=== PATIENT | male | born 1995 | race Asian ===

== ENCOUNTER 2017-03-16 07:12 | Emergency (ER) | payer OTHER ==
[2017-03-16] MEDS ORDERED: Pantoprazole IV* 40 MG IV ONE (07:45)
[2017-03-16] MEDS ORDERED: Ondansetron INJ* 2 MG/ML VIAL IV ONE (07:45)
[2017-03-16 08:49] LABS: Hematocrit 43 % (42-52); Hemoglobin 14.3 g/dl (14.0-18.0); Mean Corpuscular HGB Conc 34 g/dl (31-36); Mean Corpuscular Hemoglobin 30 pg (27-31); Mean Corpuscular Volume 91 fL (80-94); Mean Platelet Volume 9 um3 (7.4-10.4); Red Blood Count 4.69 10^6/ul (4.0-5.4); Red Cell Distribution Width 13 % (10.5-15); White Blood Count 15.5 10^3/ul (3.5-10.8)
[2017-03-16] MEDS: NS 0.9% 1000 ML* 2,000 ML IV ONE (08:50)
[2017-03-16] MEDS: Morphine INJ* 4 MG/ML 1 ML SYRINGE IV ONE ×2 (08:51→08:56)
[2017-03-16 09:04] LABS: ALT 15 U/L (7-52); Albumin 4.3 g/dL (3.2-5.2); Alkaline Phosphatase 82 U/L (34-104); Amylase 37 U/L (29-103); BUN/Creatinine Ratio 17.1 (8-20); Blood Urea Nitrogen 14 mg/dL (6-24); C Reactive Protein 2.48 mg/L (< 5.00); CO2 Carbon Dioxide 26 mmol/L (22-32); Calcium 9.5 mg/dL (8.6-10.3); Chloride 103 mmol/L (101-111); EGFR Non-African American 119.8 (>60); Globulin 3.3 g/dL (2-4); Glucose 105 mg/dL (70-100); Lipase < 10 U/L (11.0-82.0); Sodium 137 mmol/L (133-145); Total Protein 7.6 g/dL (6.4-8.9)
[2017-03-16 09:05] LABS: AST 16 U/L (13-39); Anion Gap 8 mmol/L (2-11); Potassium 4.1 mmol/L (3.5-5.0)
[2017-03-16] MEDS ORDERED: Iohexol 300* (CONTRAST) 10 ML SDV IV ONE (09:29)
--- NOTE | 2017-03-16 10:52 | RAD ---
CLINICAL HISTORY: Right lower quadrant pain since the previous evening COMPARISON: None TECHNIQUE: Contrast enhanced CT examination of the abdomen and pelvis from the lung bases through the initial tuberosities. The patient received 87 mL Omnipaque 300 intravenously prior to imaging.The patient received oral contrast as well prior to imaging. FINDINGS: VISUALIZED LUNG BASES: The visualized lung bases are grossly clear. There is no pleural effusion. ABDOMEN AND PELVIS: The liver, spleen, pancreas and adrenal glands are grossly normal in appearance. The gallbladder is decompressed limiting meaningful evaluation. The kidneys are normal in appearance without focal mass, calcification or signs of hydronephrosis. The oral contrast has progressed as far as the transverse colon. The small and large bowel are not distended. The patient's normal appendix is identified in the right lower quadrant measuring 5 mm in diameter with gas and stool in the lumen (coronal image 30). There is no gross retroperitoneal or mesenteric lymphadenopathy. Mesenteric lymph nodes measure up to 7 mm in short axis diameter, best depicted on the coronal plane images (image 35) The pelvic viscera is normal in appearance. The abdominal aorta and iliac arteries are normal in course and diameter. There are no sinister bone lesions. IMPRESSION: Normal CT examination.
[2017-03-16 11:47] VITALS: BP 107/63
--- NOTE | 2017-03-16 12:49 | ED ---
I, Oh,Soohdelmyun, scribed for Alexis Sanchez MD on 03/16/17 at 0804 . Abdominal Pain/Male - HPI Summary HPI Summary: This 21 y/o male presents to ED via ambulance for acute periumbilical pain since 0200 AM this morning. Pt last ate around 0100 AM. Pain is constant but waxing and waning, having subsided during ambulance ride but come back while in ED. No radiation of pain. Negative n/v/d or fever. Pt denies any PMHx, but reports being "some stuffs" [place] alternative medicines for his stomach. Pt is a student. Nonsmoker and nondrinker. - History of Current Complaint Chief Complaint: EDAbdPain Stated Complaint: ABD PAIN Time Seen by Provider: 03/16/17 07:30 Hx Obtained From: Patient Onset/Duration: Sudden Onset, Still Present Timing: Constant Pain Intensity: 9 Pain Scale Used: 0-10 Numeric Location: Umbilical Radiates: No Character: Dull Aggravating Factor(s): Nothing Alleviating Factor(s): Nothing Associated Signs And Symptoms: Negative: Fever, Urinary Symptoms, Nausea, Vomiting, Diarrhea - Allergies/Home Medications Allergies/Adverse Reactions: Allergies Allergy/AdvReac Type Severity Reaction Status Date / Time No Known Allergies Allergy Verified 03/16/17 07:16 PMH/Surg Hx/FS Hx/Imm Hx Previously Healthy: Yes - Denies any PMHx Infectious Disease History: No Infectious Disease History: Denies: Traveled Outside the [place] in Last 30 Days - Family History Known Family History: Negative: Hypertension - Social History Occupation: Student Alcohol Use: None Hx Substance Use: No Substance Use Type: Reports: None Hx Tobacco Use: No Smoking Status (MU): Never Smoked Tobacco Review of Systems Negative: Fever Positive: Abdominal Pain. Negative: Vomiting, Diarrhea, Nausea, Other - flatulance Negative: dysuria All Other Systems Reviewed And Are Negative: Yes Physical Exam - Summary Physical Exam Summary: The patient is well-nourished in no acute distress. Pt appears to be in moderate pain. The skin is warm and dry and skin color reflects adequate perfusion. HEENT: The head is normocephalic and atraumatic. The pupils are equal and reactive. The conjunctivae are clear and without drainage. Nares are patent and without drainage. Mouth reveals moist mucous membranes and the throat is without erythema and exudate. Neck is supple with full range of motion and non-tender. There are no carotid bruits. There is no neck vein distension. Respiratory: Chest is non-tender. Lungs are clear to auscultation and breath sounds are symmetrical and equal. Cardiovascular: Hear is regular rate and rhythm. There is no murmur or rub auscultated. There is no peripheral edema and pulses are symmetrical and equal. Abdomen: Tender above umbilicum. No RUQ/RLQ tenderness. Good bowel sound. Negative CVA tenderness. Musculoskeletal: There is no back pain noted. Extremities are non-tender with full range of motion. There is good capillary refill. There is no peripheral edema or calf tenderness elicited. Neurological: Patient is alert and oriented to person, place and time. The patient has symmetrical motor strength in all four extremities. Cranial nerves are grossly intact. Deep tendon reflexes are symmetrical and equal in all four extremities. Psychiatric: The patient has an appropriate affect and does not exhibit any anxiety or depression. Triage Information Reviewed: Yes Vital Signs On Initial Exam: Initial Vitals Temp Pulse Resp BP Pulse Ox 98.1 F 69 16 112/71 100 03/16/17 07:17 03/16/17 07:17 03/16/17 07:17 03/16/17 07:17 03/16/17 07:17 Vital Signs Reviewed: Yes Diagnostics - Vital Signs Vital Signs Temp Pulse Resp BP Pulse Ox 03/16/17 07:17 98.1 F 69 16 112/71 100 - Laboratory Lab Results: Lab Results 03/16/17 03/16/17 03/16/17 Range/Units 08:40 08:40 08:40 WBC 15.5 H (3.5-10.8) 10^3/ul RBC 4.69 (4.0-5.4) 10^6/ul Hgb 14.3 (14.0-18.0) g/dl Hct 43 (42-52) % MCV 91 (80-94) fL MCH 30 (27-31) pg MCHC 34 (31-36) g/dl RDW 13 (10.5-15) % Plt Count 207 (150-450) 10^3/ul MPV 9 (7.4-10.4) um3 Neut % (Auto) 85.2 H (38-83) % Lymph % (Auto) 9.2 L (25-47) % [place] % (Auto) 4.2 (1-9) % Eos % (Auto) 0.4 (0-6) % Baso % (Auto) 1.0 (0-2) % Absolute Neuts (auto) 13.2 H (1.5-7.7) 10^3/ul Absolute Lymphs (auto) 1.4 (1.0-4.8) 10^3/ul Absolute Monos (auto) 0.7 (0-0.8) 10^3/ul Absolute Eos (auto) 0.1 (0-0.6) 10^3/ul Absolute Basos (auto) 0.1 (0-0.2) 10^3/ul Absolute Nucleated RBC 0.01 10^3/ul Nucleated RBC % 0.1 Sodium 137 (133-145) mmol/L Potassium 4.1 (3.5-5.0) mmol/L Chloride 103 (101-111) mmol/L Carbon Dioxide 26 (22-32) mmol/L Anion Gap 8 (2-11) mmol/L BUN 14 (6-24) mg/dL Creatinine 0.82 (0.67-1.17) mg/dL Est GFR ( Amer) 154.0 (>60) Est GFR (Non-Af Amer) 119.8 (>60) BUN/Creatinine Ratio 17.1 (8-20) Glucose 105 H (70-100) mg/dL Lactic Acid 1.8 (0.5-2.0) mmol/L Calcium 9.5 (8.6-10.3) mg/dL Total Bilirubin 0.50 (0.2-1.0) mg/dL AST 16 (13-39) U/L ALT 15 (7-52) U/L Alkaline Phosphatase 82 (34-104) U/L C-Reactive Protein 2.48 (< 5.00) mg/L Total Protein 7.6 (6.4-8.9) g/dL Albumin 4.3 (3.2-5.2) g/dL Globulin 3.3 (2-4) g/dL Albumin/Globulin Ratio 1.3 (1-3) Amylase 37 (29-103) U/L Lipase < 10 L (11.0-82.0) U/L Result Diagrams: 03/16/17 08:40 05/07/17 08:40 Lab Statement: Any lab studies that have been ordered have been reviewed, and results considered in the medical decision making process. - CT Ab/P CT Interpretation: No Acute Changes CT Interpretation Completed By: Radiologist Re-Evaluation - Re-Evaluation First Eval Re-Evaluation Time: 11:04 Comment: Pt is updated with CT Ab/P results and bloodwork. Plan of care involving discharge and outpatient f/u is discussed. Pt is agreeable at this time. Pt is given hard copies of bloodwork and imaging studies. Abdominal Pain Fem Course/Dx - Course Assessment/Plan: This 21 y/o male presents to ED for acute onset of periumbilical abd pain since 0200 AM this morning. Pain has been constant since the onset. Negative n/v/d. Pt did not have any RUQ/RLQ or McBurney tenderness upon examination. Positive tenderness just above umbliicum. Negative CVA tenderness. Bloodwork was wnl except for WBC of 15.5. CT Ab/P is indicated normal. Pt is discharged with outpatient f/u with [facility] in next 2 days. - Diagnoses Differential Diagnosis/HQI/PQRI: Appendicitis, Diverticulitis, Gall Bladder Disease, Renal Colic Provider Diagnoses: Abdominal pain, Gastritis Discharge - Discharge Plan Condition: Stable Disposition: HOME Prescriptions: Omeprazole CAP* [Prilosec CAP* 20 MG] 20 mg PO DAILY #30 cap. Ondansetron ODT TAB* [Zofran 4 MG Odt TAB*] 4 mg PO Q8H PRN #20 tab.odt PRN Reason: nausea Patient Education Materials: Omeprazole (By mouth), Ondansetron (By mouth), Gastritis (ED), Abdominal Pain (ED) Referrals: [facility] [Primary Care Provider] - 2 Days The documentation as recorded by the Jose cramer Soohyun accurately reflects the service I personally performed and the decisions made by me, Alexis Sanchez MD.
== END 2017-03-16 11:39 | disposition home or self-care (01) ==
LOC: ED 07:12
DX: R10.33 Periumbilical pain (principal); K29.70 Gastritis, unspecified, without bleeding
CPT/HCPCS: 36415; 74177; 80053; 82150; 83605; 83690; 85025; 86140; 99282; J2270; J2405; Q9967